=== PATIENT | female | born 1990 | race Caucasian/White ===

== ENCOUNTER 2017-03-30 10:27 | Inpatient (IN) | payer OTHER ==
[~2017-03-30] VITALS: Ht 162.6 cm; Wt 75.0 kg
[~2017-03-30 10:27] MED LIST: CEPH500C PO; EPIN0.3P4 INJ; HC30CR25 TOP; PRED20TA PO
[2017-03-30 12:10] VITALS: BP 111/76; RESP 16
[2017-03-30] MEDS: HYDROmorphONE 1 MG/ML SYG IV PRN ×2 (12:55→20:24)
[2017-03-30] MEDS ORDERED: morphine 2 MG INJ IV PRN (13:00)
[2017-03-30] MEDS ORDERED: NACL 0.9% 3 ML SYG IV SCH (13:00)
[2017-03-30] MEDS: DEXTROSE 5%-0.45% NACL 1,000 ML IV SCH ×2 (13:25→20:39)
[2017-03-30 13:51] VITALS: Ht 162.6 cm; Wt 75.0 kg
[2017-03-30 14:45] LABS: ADD SCAN DIFF NO
[2017-03-30 14:47] LABS: BASOPHILS % 0.2 % (0.0-2.0); EOSINOPHILS # 0.2 10^3/ul (0.0-0.5); HEMATOCRIT 34.6 % (37.0-47.0); HEMOGLOBIN 12.7 g/dl (12.0-16.0); LYMPHOCYTES # 3.7 10^3/ul (0.8-2.9); LYMPHOCYTES % 40.4 % (15.0-51.0); MEAN CORPUSCULAR HGB CONC 36.7 g/dl (32.0-37.0); MEAN CORPUSCULAR VOLUME 87.2 fl (82.0-101.0); MEAN PLATELET VOLUME 11.3 fl (7.4-10.4); MONOCYTE # 0.5 10^3/ul (0.3-0.9); MONOCYTES % 5.1 % (0.0-11.0); NEUTROPHIL # 4.7 10^3/ul (1.6-7.5); NEUTROPHILS % 51.9 % (39.0-77.0); PLATELET COUNT 202 10^3/UL (140-415); RED BLOOD COUNT 3.97 10^6/ul (4.20-5.40); RED CELL DISTRIBUTION WIDTH 12.2 % (11.5-14.5); WHITE BLOOD COUNT 9.1 10^3/ul (4.8-10.8)
[2017-03-30 15:07] LABS: ALBUMIN 4.4 g/dl (3.3-4.9); ALBUMIN/GLOBULIN RATIO 2.2; BILIRUBIN,INDIRECT 0.5 mg/dl (0-1.1); BILIRUBIN,TOTAL 0.5 mg/dl (0.2-1.3); CALCIUM 8.6 mg/dl (8.4-10.2); CREATININE 0.7 mg/dl (0.44-1.00); PHOSPHORUS 4.5 mg/dl (2.5-4.9); POTASSIUM 3.6 mmol/L (3.5-5.1); TOTAL PROTEIN 6.4 g/dl (6.1-8.1)
--- NOTE | 2017-03-30 17:21 | RADRPT ---
PROCEDURE: MRCP. CLINICAL INDICATION: In the right upper quadrant abdomen pain. Gallstones. TECHNIQUE: MRCP was performed. The following sequences were obtained: Three plane gradient echo localizers, coronal gradient echo images, breath hold axial T2-weighted fat saturation images, klever nal T2-weighted images, axial 3-D LAVA images, axial T2-weighted breath hold fast spin echo images, and 3-D coronal rotating MIP images of the biliary tree. COMPARISON: None available FINDINGS: The liver is normal in size. There is normal signal intensity within the liver. There is no focal hepatic lesion. The spleen is normal in size and homogeneous in signal intensity. Multiple gallstones are present in the gallbladder. There is no evidence of cholecystitis. The bile ducts are mildly dilated with the common bile duct measuring 10 mm in diameter. The is no bile duct obstructing lesion. There is no stone in the common bile duct. The pancreatic duct is grossly normal. The kidneys are grossly normal. The abdominal aorta is not dilated. IMPRESSION: 1. Gallstones in the gallbladder. No evidence of cholecystitis. 2. Dilated common bile duct measuring 10 mm in diameter. No obstructing lesion is visualized. If there is clinical concern regarding a distal common bile duct stone which may not be visible with MR CP, correlation with ERCP is advised. RPTAT: QQ .Jesus Ritchie MD, MD Date Time Electronically viewed and signed by .Jesus Ritchie MD, on 03/30/2017 17:21 .R/
--- NOTE | 2017-03-30 18:45 | CONS ---
Date/Time of Note Date/Time of Note DATE: 03/30/17 TIME: 18:33 Assessment/Plan Assessment/Plan Additional Assessment/Plan Assessment * Abdominal pain Cholecystolithiasis MRI 1. Gallstones in the gallbladder. No evidence of cholecystitis. . Dilated common bile duct measuring 10 mm in diameter. No obstructing lesion is visualized. If there is clinical concern regarding a distal common bile duct stone which may not be visible with MRCP, correlation with ERCP is advised. Plan * Pain control * Surgery consult * trend liver enzymes * continue present management Consultation Date/Type/Reason Admit Date/Time Mar 30, 2017 at 12:07 Date of Consultation: Mar 30, 2017 Type of Consultation: Gastroenterology Reason for Consultation r/o cbd dilation by ultrasound Referring Provider: MIMI RAMOS MD Hx of Present Illness 26 year old female who was transferred from [facility] because of abdominal pain.Present condition started 2 days prior to transfer as right upper quadrant pain with associated nausea and vomiting.Pain getting worse hence consulted [facility] an ultrasound revealed gallstone and interval common bile duct dilatation.ON the floor still complains on and off abdominal pain and MRCP revealed 1. Gallstones in the gallbladder. No evidence of cholecystitis. 2. Dilated common bile duct measuring 10 mm in diameter. No obstructing lesion is visualized. If there is clinical concern regarding a distal common bile duct stone which may not be visible with MRCP, correlation with ERCP is advised. Patient still complaining of abdominal pain but liver enzymes are normal Constitutional: improved, no complaints Eyes: no complaints ENT: no complaints Respiratory: no complaints Cardiovascular: no complaints Gastrointestinal: pain Genitourinary: no complaints Musculoskeletal: no complaints Skin: no complaints Neurologic: no complaints Endocrine: no complaints Lymphatic: no complaints Psychological: nl mood/affect, no complaints Immunologic: no complaints Past Medical History Medical History: no pertinent history Past Surgical History Past Surgical Hx: no surgical history Family History Significant Family History: no pertinent family hx Social History Smoking Status: Never smoker Exam/Review of Systems Vital Signs Vitals Vital Signs Date Time Temp Pulse Resp B/P Pulse Ox O2 Delivery O2 Flow Rate FiO2 03/30/17 12:10 98.4 91 16 111/76 97 Exam Constitutional: alert, oriented, well developed Psych: nl mood/affect, no complaints Head: atraumatic, normocephalic Eyes: EOMI, PERRL, nl conjunctiva, nl lids, nl sclera ENMT: nl external ears & nose, nl lips & teeth, nl nasal mucosa & septum Neck: non-tender, supple Respiratory: clear to auscultation, normal air movement Cardiovascular: nl pulses, regular rate and rhythm Gastrointestinal: nl liver, spleen, non-tender, soft Musculoskeletal: nl extremities to inspection, nl gait and stance Extremities: normal pulses Neurological: [employer] II-XII intact, nl mental status, nl speech, nl strength Skin: nl turgor, No rash or lesions Lymph: nl lymph nodes Results Result Diagram: 03/30/17 1430 03/30/17 1430 Results 24 hrs Laboratory Tests Test 03/30/17 14:30 White Blood Count 9.1 Red Blood Count 3.97 L Hemoglobin 12.7 Hematocrit 34.6 L Mean Corpuscular Volume 87.2 Mean Corpuscular Hemoglobin 32.0 Mean Corpuscular Hemoglobin Concent 36.7 Red Cell Distribution Width 12.2 Platelet Count 202 Mean Platelet Volume 11.3 H Neutrophils % 51.9 Lymphocytes % 40.4 Monocytes % 5.1 Eosinophils % 2.0 Basophils % 0.2 Nucleated Red Blood Cells % 0.0 Neutrophils # 4.7 Lymphocytes # 3.7 H Monocytes # 0.5 Eosinophils # 0.2 Basophils # 0.0 Nucleated Red Blood Cells # 0.0 Sodium Level 138 Potassium Level 3.6 Chloride Level 101 Carbon Dioxide Level 29 Anion Gap 12 Blood Urea Nitrogen 14 Creatinine 0.70 Glucose Level 87 Calcium Level 8.6 Phosphorus Level 4.5 Magnesium Level 2.0 Total Bilirubin 0.5 Direct Bilirubin 0.00 Indirect Bilirubin 0.5 Aspartate Amino Transf (AST/SGOT) 17 Alanine Aminotransferase (ALT/SGPT) 30 Alkaline Phosphatase 60 Total Protein 6.4 Albumin 4.4 Globulin 2.00 Albumin/Globulin Ratio 2.20 Medications Medications Current Medications Dextrose/Sodium Chloride (D5-1/2ns) 1,000 ml @ 125 mls/hr Q8H IV Last administered on 03/30/17t 13:25; Admin Dose 125 MLS/HR; Start 03/30/17 at 12:39 Ondansetron HCl (Zofran Inj) 4 mg Q6H PRN IV NAUSEA AND/OR VOMITING; Start at 13:00 Morphine Sulfate (morphine) 4 mg Q4H PRN IV pain; Start 03/30/17 at 13:00 Hydromorphone HCl (Dilaudid) 1 mg Q4H PRN IV SEVERE PAIN LEVEL 7-10 Last administered on 03/30/17t 12:55; Admin Dose 1 MG; Start 03/30/17 at 13:00 APRIL ABDUL MD Mar 30, 2017 18:44
[2017-03-30] MEDS ORDERED: INDOMETHACIN 50 MG SUPP PR SCH (19:00)
[2017-03-30 20:07] VITALS: BP 107/72; RESP 20
--- NOTE | 2017-03-30 21:56 | HP ---
Date/Time of Note Date/Time of Note DATE: 03/30/17 TIME: 21:56 Assessment/Plan VTE Prophylaxis VTE Prophylaxis Intervention: SCD's Lines/Catheters IV Catheter Type (from Nrsg): Peripheral IV Assessment/Plan Assessment/Plan IMPRESSION 1. Cholelithiasis with likely choledocholithiasis 2. Abd pain 2/2 above 3. Erythematous Macular rash: likely seasonal allergic reaction PLAN f/u MRCP pain mgmt seen by GI, appreciate awaiting surgical Eval PRN Benadryl and steroid for skin rash HPI/ROS Admit Date/Time Admit Date/Time Mar 30, 2017 at 12:07 Hx of Present Illness This is a 26 yo female with no significant medical hx who initially went to outside hospital c/o abd pain. She was diagnosed with cholelithiasis with imaging also showing dilated CBD. She was transferred here because of insurance reason. Her pain is mainly located in epigastric area with radiation to her back. She also has some pain in RUQ area. She denied N/V, fever/chills, diarrhea or constipation. . ROS Eyes: no complaints ENT: no complaints Respiratory: no complaints Cardiovascular: no complaints Gastrointestinal: pain Genitourinary: no complaints Musculoskeletal: no complaints Skin: no complaints Neurologic: no complaints Lymphatic: no complaints Psychological: nl mood/affect, no complaints Immunologic: no complaints PMH/Family/Social Past Medical History Medical History: no pertinent history Past Surgical History Past Surgical Hx: no surgical history Social History Smoking Status: Never smoker Exam/Review of Systems Vital Signs Vitals Vital Signs Date Time Temp Pulse Resp B/P Pulse Ox O2 Delivery O2 Flow Rate FiO2 03/30/17 20:07 98.0 78 20 107/72 94 Exam Constitutional: alert, oriented, well developed Head: atraumatic, normocephalic Eyes: EOMI, PERRL Respiratory: clear to auscultation, normal air movement Cardiovascular: nl pulses, regular rate and rhythm Gastrointestinal: soft, tender Extremities: normal pulses Labs Result Diagram: 03/30/17 1430 03/30/17 1430 Medications Medications Current Medications Dextrose/Sodium Chloride (D5-1/2ns) 1,000 ml @ 125 mls/hr Q8H IV Last administered on 03/30/17t 13:25; Admin Dose 125 MLS/HR; Start 03/30/17 at 12:39 Ondansetron HCl (Zofran Inj) 4 mg Q6H PRN IV NAUSEA AND/OR VOMITING; Start at 13:00 Morphine Sulfate (morphine) 4 mg Q4H PRN IV pain; Start 03/30/17 at 13:00 Hydromorphone HCl (Dilaudid) 1 mg Q4H PRN IV SEVERE PAIN LEVEL 7-10 Last administered on 03/30/17t 20:24; Admin Dose 1 MG; Start 03/30/17 at 13:00 MIMI RAMOS MD Mar 30, 2017 21:56
[2017-03-30] MEDS: ONDANSETRON 4 MG INJ IV PRN (22:09)
[2017-03-31] VITALS (23 sets, daily range): BP systolic 97–138; BP diastolic 56–96; PULSE 78–122; RESP 14–22
[2017-03-31 06:38] LABS: ADD SCAN DIFF NO
[2017-03-31 06:49] LABS: BASOPHILS % 0.2 % (0.0-2.0); EOSINOPHILS # 0.3 10^3/ul (0.0-0.5); EOSINOPHILS % 2.8 % (0.0-7.0); HEMATOCRIT 38.5 % (37.0-47.0); HEMOGLOBIN 13.6 g/dl (12.0-16.0); LYMPHOCYTES # 3.4 10^3/ul (0.8-2.9); LYMPHOCYTES % 36.3 % (15.0-51.0); MEAN CORPUSCULAR HEMOGLOBIN 31.1 pg (29.0-33.0); MEAN CORPUSCULAR HGB CONC 35.3 g/dl (32.0-37.0); MEAN CORPUSCULAR VOLUME 88.1 fl (82.0-101.0); MONOCYTE # 0.5 10^3/ul (0.3-0.9); MONOCYTES % 5.3 % (0.0-11.0); NEUTROPHIL # 5.1 10^3/ul (1.6-7.5); PLATELET COUNT 228 10^3/UL (140-415); RED BLOOD COUNT 4.37 10^6/ul (4.20-5.40); RED CELL DISTRIBUTION WIDTH 12.4 % (11.5-14.5); WHITE BLOOD COUNT 9.3 10^3/ul (4.8-10.8)
[2017-03-31] MEDS ORDERED: ROCURONIUM 50 MG INJ ONE (07:00)
[2017-03-31] MEDS ORDERED: PROPOFOL 200 MG INJ ONE (07:00)
[2017-03-31] MEDS: DEXTROSE 5%-0.45% NACL 1,000 ML IV SCH ×2 (07:11→12:39)
[2017-03-31 07:33] LABS: CALCIUM 8.9 mg/dl (8.4-10.2); CREATININE 0.64 mg/dl (0.44-1.00); MAGNESIUM 2.1 mg/dl (1.7-2.5); PHOSPHORUS 4.2 mg/dl (2.5-4.9); POTASSIUM 3.8 mmol/L (3.5-5.1)
[2017-03-31 08:54] LABS: ALANINE AMINOTRANSFERASE 31 IU/L (13-69); ALKALINE PHOSPHATASE 66 IU/L (42-121); ASPARTATE AMINO TRANSFERASE 22 IU/L (15-46)
[2017-03-31] MEDS: HYDROmorphONE 1 MG/ML SYG IV PRN ×3 (10:05→20:10)
[2017-03-31] MEDS: KETOROLAC 30 MG INJ IV PRN ×3 (11:54→21:44)
[2017-03-31] MEDS ORDERED: LORAZEPAM 2 MG INJ IV PRN (12:00)
--- NOTE | 2017-03-31 12:43 | HPN ---
Date/Time of Note Date/Time of Note DATE: 03/31/17 TIME: 12:43 Interval H&P Admission Note Pt. seen H&P reviewed: No system changes Pt. seen H&P reviewed. No system changes (I attest that I have seen and examined the patient and reviewed the operation in detail, as well as its risks , benefits and alternatives of the operation). I attest that I have seen and examined the patient and reviewed in detail the operation, and its associated risks, benefits and alternative. I have answered all the patient's questions to the best of my ability and the patient wishes to proceed. Please refer to rest of electronic medical record for additional updates. MALIK HERNANDEZ M.D. Mar 31, 2017 12:43
--- NOTE | 2017-03-31 13:13 | CONS ---
[facility] INITIAL INPATIENT CONSULTATION NOTE DATE OF CONSULTATION: 03/31/2017 PLACE OF SERVICE: [facility], second floor [facility] ASSESSMENT AND PLAN: A very pleasant 26-year-old young lady with comorbidity of BMI 28.4, presenting with possible early acute cholecystitis in the setting of biliary colic. She does not have any obvious evidence of choledocholithiasis , and gastroenterology has been involved and the team feels that the patient does not need any further testing. I do believe that the patient can benefit significantly from the removal of her gallbladder, and for this reason, I consented her in the presence of her mother for a laparoscopic, possible open cholecystectomy. We reviewed the operation in detail including the risks, benefits, and alternatives, and I answered all the patient's and family's questions to the best of my ability. After careful consideration of all their options, I believe that the patient and family appeared to understand and agreed with the plan. With above assessment, I recommend the following: To the operating room for above. Thank you again for allowing us to participate in the care of this very pleasant lady and her wonderful family. If there are any questions, please feel free to contact me at [phone]. UPDATED CLINICAL SUMMARY: A very pleasant 26-year-old young lady with comorbidity of BMI 28.4, presenting with signs and symptoms consistent with possible early acute cholecystitis and biliary colic. COMORBIDITIES: 1. BMI 28.4. 2. Cholelithiasis. 3. A 10 mm in diameter common bile duct without obvious stone disease. DATE OF ADMISSION: 03/30/2017 HISTORY OF PRESENT ILLNESS: The patient is a very pleasant 26-year-old young lady with above-mentioned comorbidities whom we were kindly asked to consult regarding management of her possible early acute cholecystitis. The patient was transferred from an outside hospital due to insurance capitation after she presented there with abdominal pain of approximately 3 or 4 days duration in the right upper quadrant without significant alleviation. She does not report any significant relationship of pain to food, although she has been avoiding spicy foods. No diarrhea or constipation, no blood in the stool or urine. No significant nausea or vomiting. Her workup included laboratory values that were normal and an MRCP done on 03/30/2017 showed no obvious stone disease within the common bile duct and significant stones within the gallbladder. No other major complaints during my visit. ALLERGIES: NO KNOWN DRUG ALLERGIES. MEDICATIONS: None. SOCIAL HISTORY: The patient works with [employer]. She does not report any major smoking, drinking, or intravenous drug use. FAMILY HISTORY: There is no mention of major medical, surgical, or oncologic problems in the family. REVIEW OF SYSTEMS: Other than the above-mentioned, there are no other pertinent positives or pertinent negatives in a complete 14-point review of systems. PHYSICAL EXAMINATION: GENERAL: The patient appears to be a very pleasant young lady of descent, appearing stated age, lying in bed comfortably and in no acute distress. BMI is 28.4. VITAL SIGNS: Temperature 98.7, blood pressure 97/56, pulse 89, respiratory rate 16, pulse oximetry 94% on room air. HEENT: Normocephalic and atraumatic. Extraocular muscles and hearing are grossly intact bilaterally and symmetrically. Sclerae are nonicteric. Oral cavity is clear; oral mucosa appeared to be pink and moist. Dentition: fair. NECK: Supple. There is no lymphadenopathy or JVD. There is no submental, submandibular or supraclavicular lymphadenopathy. CHEST: Rises symmetrically with each breath; patient is breathing comfortably. There are no audible wheezes, rales or rhonchi on the gross exam. HEART: Pulse is regular and palpable on the left wrist. Capillary refill was normal. Carotid pulses are palpable bilaterally and symmetrically in the neck. EXTREMITIES: Lower extremities contain no pitting edema around the ankles bilaterally and symmetrically. ABDOMEN: Abdomen is soft, nontender and nondistended. There are no peritoneal signs or guarding. No evidence of ascites, organomegaly, caput medusae, engorged subcutaneous veins, or other abnormalities. SKIN: Appears to be pink and feels warm to touch. NEUROLOGIC: Awake, alert, and follows commands appropriately. LABORATORY DATA: White blood cell count 9.3, hemoglobin 13.6, platelets 228. Electrolytes are normal. CO2 of 28, creatinine 0.64, total bilirubin 0.5, AST 17, ALT 30, alkaline phosphatase 60, albumin 4.4. IMAGING: MRCP done on 03/30/2017 with above-mentioned results. Note that I personally reviewed all the available and pertinent images and I agree in general with their overall reported findings. Dictated By: MALIK TOLEDO/RUDOLPH Conf#: [id number] DID#: [id number]
[2017-03-31] MEDS ORDERED: BUPIVACAINE 0.25%/EPI (SDV) 30 ML INJ ONE (13:20)
[2017-03-31] MEDS ORDERED: FENTAnyl 50 MCG/ML VIAL ONE (14:00)
[2017-03-31] MEDS ORDERED: MIDAZOLAM 1 MG/ML 2 ML INJ ONE (14:00)
[2017-03-31] MEDS ORDERED: LIDOCAINE 1% (MDV) 20 ML INJ ONE (14:03)
[2017-03-31] MEDS ORDERED: ROPIVACAINE 0.2% 20 ML VIAL ONE (14:11)
[2017-03-31] MEDS ORDERED: CEFAZOLIN 1 GM INJ ONE (14:33)
[2017-03-31] MEDS ORDERED: FAMOTIDINE 20 MG INJ ONE (14:43)
[2017-03-31] MEDS ORDERED: ONDANSETRON 4 MG INJ ONE (14:43)
[2017-03-31] MEDS ORDERED: DEXAMETHASONE 4 MG/ML 1 ML INJ ONE (14:43)
[2017-03-31] MEDS ORDERED: ACETAMINOPHEN 1000MG/100ML IV 100 ML ONE (14:45)
[2017-03-31] MEDS ORDERED: SUGAMMADEX SODIUM 200 MG/2 ML VIAL IV ONE (15:06)
--- NOTE | 2017-03-31 15:12 | PN ---
Date/Time of Note Date/Time of Note DATE: 03/31/17 TIME: 15:10 Assessment/Plan VTE Prophylaxis VTE Prophylaxis Intervention: SCD's Lines/Catheters IV Catheter Type (from Nrsg): Peripheral IV Assessment/Plan Assessment/Plan IMPRESSION 1. Cholelithiasis with dilated CBD 2. Abd pain 2/2 above 3. Erythematous Macular rash: likely seasonal allergic reaction PLAN f/u MRCP pain mgmt seen by GI, appreciate taken to OR for Lap choley PRN Benadryl and steroid for skin rash Subjective 24 Hr Interval Summary Free Text/Dictation pt is in OR, but per nursing was c/o continued abd pain despite dilaudid. toradol was added Exam/Review of Systems Vital Signs Vitals Vital Signs Date Time Temp Pulse Resp B/P Pulse Ox O2 Delivery O2 Flow Rate FiO2 03/31/17 10:00 78 100/65 03/31/17 08:10 98.7 16 94 Intake and Output 03/30/17 03/30/17 03/31/17 15:00 23:00 07:00 Intake Total 500 ml 0 ml Balance 500 ml 0 ml Exam not seen since in OR Results Result Diagram: 03/31/17 0432 03/31/17 0432 Results 24 hrs Laboratory Tests Test 03/31/17 04:32 White Blood Count 9.3 Red Blood Count 4.37 Hemoglobin 13.6 Hematocrit 38.5 Mean Corpuscular Volume 88.1 Mean Corpuscular Hemoglobin 31.1 Mean Corpuscular Hemoglobin Concent 35.3 Red Cell Distribution Width 12.4 Platelet Count 228 Mean Platelet Volume 12.0 H Neutrophils % 55.0 Lymphocytes % 36.3 Monocytes % 5.3 Eosinophils % 2.8 Basophils % 0.2 Nucleated Red Blood Cells % 0.0 Neutrophils # 5.1 Lymphocytes # 3.4 H Monocytes # 0.5 Eosinophils # 0.3 Basophils # 0.0 Nucleated Red Blood Cells # 0.0 Sodium Level 136 Potassium Level 3.8 Chloride Level 102 Carbon Dioxide Level 28 Anion Gap 10 Blood Urea Nitrogen 9 Creatinine 0.64 Glucose Level 72 Calcium Level 8.9 Phosphorus Level 4.2 Magnesium Level 2.1 Aspartate Amino Transf (AST/SGOT) 22 Alanine Aminotransferase (ALT/SGPT) 31 Alkaline Phosphatase 66 Medications Medications Current Medications Dextrose/Sodium Chloride (D5-1/2ns) 1,000 ml @ 125 mls/hr Q8H IV Last administered on 03/31/17 07:11; Admin Dose 125 MLS/HR; Start 03/30/17 at 12:39 Ondansetron HCl (Zofran Inj) 4 mg Q6H PRN IV NAUSEA AND/OR VOMITING Last administered on 03/30/17 22:09; Admin Dose 4 MG; Start 03/30/17 at 13:00 Morphine Sulfate (morphine) 4 mg Q4H PRN IV pain; Start 03/30/17 at 13:00 Hydromorphone HCl (Dilaudid) 1 mg Q4H PRN IV SEVERE PAIN LEVEL 7-10 Last administered on 03/31/17 10:05; Admin Dose 1 MG; Start 03/30/17 at 13:00 Ketorolac Tromethamine (Toradol) 30 mg Q6H PRN IV PAIN Last administered on 11:54; Admin Dose 30 MG; Start 03/31/17 at 12:00; Stop 04/03/17 at 11:59 Lorazepam (Ativan) 1 mg Q4H PRN IV anixety Last administered on 03/31/17 11:58 ; Admin Dose 1 MG; Start 03/31/17 at 12:00 MIMI RAMOS MD Mar 31, 2017 15:12
--- NOTE | 2017-03-31 15:23 | OPR ---
Date/Time of Note Date/Time of Note DATE: 03/31/17 TIME: 15:23 Operative Report Operative\Procedure Findings [facility] INPATIENT OPERATIVE NOTE PLACE OF SERVICE: [facility] DATE OF SURGERY: 03/31/2017 PREOPERATIVE DIAGNOSIS: 1. Possible early acute cholecystitis 2. BMI 28.4 3. Cholelithiasis 4. 10 mm common bile duct without choledocholithiasis POSTOPERATIVE DIAGNOSIS: 1. Acute cholecystitis 2. BMI 28.4 3. Cholelithiasis 4. 10 mm common bile duct without choledocholithiasis OPERATION: 1. Laparoscopic cholecystectomy SURGEON: Malik Hernandez M.D. [employer] INSPECTOR: None ANESTHESIA: General endotracheal tube anesthesia ANESTHESIOLOGIST: Evens Bledsoe M.D. BRIEF SUMMARY: An otherwise uncomplicated laparoscopic cholecystectomy was performed with findings of acute cholecystitis. UPDATED CLINICAL SUMMARY: A very pleasant 26-year-old young lady with comorbidity of BMI 28.4, presenting with signs and symptoms consistent with possible early acute cholecystitis and biliary colic. COMORBIDITIES: 1. BMI 28.4. 2. Cholelithiasis. 3. A 10 mm in diameter common bile duct without obvious stone disease. BRIEF HISTORY: The patient is a very pleasant 26-year-old young lady with comorbidity of BMI 28.4, presenting with possible early acute cholecystitis in the setting of biliary colic. She does not have any obvious evidence of choledocholithiasis, and gastroenterology has been involved and the team feels that the patient does not need any further testing. I do believe that the patient can benefit significantly from the removal of her gallbladder, and for this reason, I consented her in the presence of her mother for a laparoscopic, possible open cholecystectomy. We reviewed the operation in detail including the risks, benefits, and alternatives, and I answered all the patient's and family's questions to the best of my ability. After careful consideration of all their options, I believe that the patient and family appeared to understand and agreed with the plan. For a detailed report of my consultation with patient and family, please refer to my separate consultation note. STATEMENT OF THE INFORMED CONSENT: The patient and family appeared to understand the risks of the operation to include, but not be limited to risk of postoperative pain and scar tissue, possible infection or bleeding requiring other interventions such as opening the wound, placement of drainage catheters, or other operative interventions; possible injury to surrounding to structures including bowel, bladder, bile duct, or blood vessels, or solid organs such as liver, kidney, or pancreas requiring other interventions or procedures; possible leakage of bile from surgical clip sites, suture lines, or worse, from common bile duct injury, causing significant increase in morbidity and mortality and requiring multiple interventions including but not limited to, placement of drainage catheters, imaging studies, as well as operative interventions; possible other source of sepsis such as urinary tract infections or pneumonias, or other sources of potentially life threatening problems such as deep venous thrombus formation causing pulmonary embolism, myocardial arrhythmias and infarctions, and even . After careful consideration of all their options, the patient and family appeared to understand and wished to proceed with surgery. DESCRIPTION OF PROCEDURE: After obtaining informed consent, the patient was brought into the operating room and was placed in a normal supine position, where successful general endotracheal tube anesthesia was performed. The patient 's abdominal skin was prepped and draped, from the nipple line down to the level of the groins, in the usual sterile fashion. Intravenous access was already in place, and appropriately chosen and dosed prophylactic intravenous antimicrobials were administered. We then called a surgical time-out where patient's identification, date of , nature of the operation, allergies, presence of intravenous antimicrobials, presence of needed equipment, and any other concerns were reviewed and agreed upon by all members of the operating room team. We then started the operation by placing a 5-mm skin incision in the right- upper quadrant, subcostal midclavicular line, and introduced a 5-mm [employer] trocar into the peritoneal space, visualizing all the layers of the abdominal wall as we entered. Note that there was no indication of any injury to underlying structures once we entered the peritoneum. We insufflated the abdominal cavity to a maximum pressure of 15 mmHg, again, confirmed lack of any injury to underlying structures prior to visualizing the rest of the abdominal cavity. We found the fundus of the gallbladder to be visible. Gallbladder appeared to be significantly distended and swollen. There was no evidence of malignancy. No evidence of calcifications or significant issues with adhesions, or other abnormalities. The liver appeared to be healthy. With this information, we went a head and placed the other trocars under direct visualization, after injecting their sites with 0.25% Marcaine with epinephrine , placing a 5-mm trocar in the umbilical midline area, a 5-mm trocar in the right anterior axillary line, and a 12-mm trocar in the midline subxiphoid region. With our instruments in place, we had excellent visualization and access to the right-upper quadrant. We then drained the gallbladder using a laparoscopic needle (bilious fluid drained) and then we grasped the fundus of the gallbladder and pointed up towards the right-upper quadrant. There was mild omental adhesions onto the infundibulum which we took down with judicious use of cautery, as well as meticulous blunt dissection. We were then able to grasp the infundibulum and pull it out in order to expose the critical triangle of Calot. We then placed our usual serosal cuts along the long axis of the gallbladder 1 cm away from its attachment to the liver bed up towards the fundus, and then joined these 2 lines under the infundibulum, taking care not to deliver any energy to underlying structures. Due to the significant amount of inflammation in the triangle of Calot low and to maximize the degree of safety of the operation, I decided to take the gallbladder top-down which we accomplished using cautery. We then performed meticulous dissection to identify and circumferentially isolate both the cystic duct and cystic artery, prior to transecting them between 2 surgical Endoclips, proximally and one distally on the cystic artery and 3 surgical endoclips proximally and one distally on the cystic duct, transecting both using cold scissors, and only after making sure that these were the only 2 structures going into the gallbladder. We then shaved the gallbladder off the gallbladder bed using cautery, and then delivered it out inside of an EndoCatch bag through the 12-mm trocar site without enlarging the fascia or contaminating the wound. The gallbladder was sent to Pathology for evaluation. Returning to the abdominal cavity, we ensured that there was adequate hemostasis and bile-stasis prior to removal of all of or equipment, including the pneumoperitoneum, and then reapproximating the 12-mm trocar site with one [id number] 0 Vicryl suture, followed by washing the wounds with copious amounts of normal saline, and then reapproximating the skin using interrupted 4- 0 Monocryl sutures. Light dressing was then applied. At the end of the operation, both the sponge count and needle count were reportedly correct x2. The patient tolerated the procedure without any reported complications. ESTIMATED BLOOD LOSS: Less than 10 mL. BLOOD OR BLOOD PRODUCT TRANSFUSIONS: None to my knowledge. SPECIMENS: 1. Gallbladder COMPLICATIONS: None. DISPOSITION: Recovery area. Disclaimer: Inadvertent spelling and grammatical errors are likely due to EHR/ dictation software use and do not reflect on the quality of delivered patient care. MALIK HERNANDEZ M.D. Mar 31, 2017 15:23
[2017-03-31] MEDS ORDERED: HYDROmorphONE (0.2 MG/ML) 10ML SYG IV PRN ×2 (15:30)
[2017-03-31] MEDS ORDERED: BISACODYL 10 MG SUPP PR PRN (15:30)
[2017-03-31] MEDS ORDERED: DIPHENHYDRAMINE 50 MG INJ IV PRN (15:30)
[2017-03-31] MEDS ORDERED: DOCUSATE SODIUM 100 MG CAP PO PRN (15:30)
[2017-03-31] MEDS ORDERED: MEPERIDINE 25 MG INJ IV PRN (15:30)
[2017-03-31] MEDS ORDERED: NA PHOSPHATE/BIPHOS 133 ML ENEMA PR PRN (15:30)
[2017-03-31] MEDS ORDERED: HYDROCODONE/APAP (5/325) TAB PO PRN ×2 (15:30)
[2017-03-31] MEDS ORDERED: HYDROmorphONE 1 MG/ML SYG IV PRN (15:30)
[2017-03-31] MEDS ORDERED: PROCHLORPERAZINE 10 MG INJ IV PRN (15:30)
[2017-03-31] MEDS: ONDANSETRON 4 MG INJ IV PRN (16:08)
[2017-03-31] MEDS: D5W-0.45 NACL + KCL 20 MEQ 1,000 ML IV SCH (16:44)
[2017-04-01] MEDS: D5W-0.45 NACL + KCL 20 MEQ 1,000 ML IV SCH ×2 (05:24→11:16)
[2017-04-01 08:00] VITALS: BP 108/68; PULSE 86; RESP 18
[2017-04-01] MEDS ORDERED: FAMOTIDINE 20 MG INJ IV SCH (09:00)
[2017-04-01] MEDS ORDERED: ENOXAPARIN 40 MG/0.4 ML SYG SC SCH (09:00)
--- NOTE | 2017-04-01 14:14 | PN ---
Date/Time of Note Date/Time of Note DATE: 04/01/17 TIME: 14:11 Assessment/Plan VTE Prophylaxis VTE Prophylaxis Intervention: ambulation Lines/Catheters IV Catheter Type (from Nrsg): Peripheral IV Assessment/Plan Assessment/Plan Assessment * Cholecystolithiasis * S/P Laparoscopic cholecystectomy Plan * Stable for out patient management Subjective 24 Hr Interval Summary Free Text/Dictation * Course reviewed with RN * Patient seen and examined * S/P laparoscopic cholecystectomy Exam/Review of Systems Vital Signs Vitals Vital Signs Date Time Temp Pulse Resp B/P Pulse Ox O2 Delivery O2 Flow Rate FiO2 04/01/17 08:00 98.8 86 18 108/68 95 Room Air Intake and Output 03/31/17 03/31/17 04/01/17 15:00 23:00 07:00 Intake Total 100 ml 1650 ml Output Total 2 ml Balance 100 ml 1648 ml Exam Constitutional: alert, oriented Psych: nl mood/affect Head: normocephalic Neck: non-tender, supple Respiratory: clear to auscultation, normal air movement Cardiovascular: nl pulses, regular rate and rhythm Gastrointestinal: non-tender, soft Musculoskeletal: nl extremities to inspection, nl gait and stance Extremities: normal pulses Neurological: nl speech, nl strength Skin: nl turgor, No rash or lesions Results Result Diagram: 03/31/1743103/31/17 043 Medications Medications Current Medications Ondansetron HCl (Zofran Inj) 4 mg Q6H PRN IV NAUSEA AND/OR VOMITING Last administered on 03/31/17 16:08; Admin Dose 4 MG; Start 03/30/17 at 13:00 Hydromorphone HCl (Dilaudid) 1 mg Q4H PRN IV SEVERE PAIN LEVEL 7-10 Last administered on 03/31/17 10:05; Admin Dose 1 MG; Start 03/30/17 at 13:00 Ketorolac Tromethamine (Toradol) 30 mg Q6H PRN IV PAIN Last administered on 21:44; Admin Dose 30 MG; Start 03/31/17 at 12:00; Stop 04/03/17 at 11:59 Lorazepam 1 mg 1 mg Q4H PRN IV anixety Last administered on 03/31/17 11:58; Admin Dose 1 MG; Start 03/31/17 at 12:00 Potassium Chloride/Dextrose/ Sod Cl (D5-1/2ns + KCl 20 Meq) 1,000 ml @ 100 mls/ hr Q10H IV Last administered on 04/01/17 05:24; Admin Dose 100 MLS/HR; Start 03/31/17 at 15:16 Acetaminophen/ Hydrocodone Bitart ([place] (5/325)) 1 tab Q4H PRN PO PAIN LEVEL 4 -7; Start 03/31/17 at 15:30 Acetaminophen/ Hydrocodone Bitart ([place] (5/325)) 2 tab Q4H PRN PO PAIN LEVEL 7 -10 Last administered on 03/31/17 23:05; Admin Dose 2 TAB; Start 03/31/17 at 15 :30 Hydromorphone HCl (Dilaudid) 0.5 mg Q2H PRN IV PAIN Last administered on 20:10; Admin Dose 0.5 MG; Start 03/31/17 at 15:30 Hydromorphone HCl (Dilaudid) 1 mg Q2H PRN IV PAIN; Start 03/31/17 at 15:30 Docusate Sodium (Colace) 100 mg BID PRN PO CONSTIPATION; Start 03/31/17 at 15: 30 Bisacodyl (Dulcolax Supp) 10 mg BID PRN LA CONSTIPATION; Start 03/31/17 at 15: 30 Sodium Biphosphate/ Sodium Phosphate (Fleet Enema) 133 ml BID PRN LA CONSTIPATION; Start 03/31/17 at 15:30 Famotidine (Pepcid Iv) 20 mg DAILY IV ; Start 04/01/17 at 09:00 Enoxaparin Sodium (Lovenox) 40 mg DAILY SC ; Start 04/01/17 at 09:00 NICHELLE BOUCHER NP Apr 01, 2017 14:14
[2017-04-01] MEDS: KETOROLAC 30 MG INJ IV PRN (15:50)
--- NOTE | 2017-04-01 16:59 | PDOCDIS ---
Discharge Instructions CONDITION Patient Condition: Stable HOME CARE INSTRUCTIONS: Diet Instructions: Regular ACTIVITY: Activity Restrictions: Slowly Increase Activity Avoid heavy lifting Avoid Heavy Housework FOLLOW UP/APPOINTMENTS Appointments follow-up with Dr. avalos in 1 to 2 weeks OTHER ORDERS: Other Orders: call 911 and go to the nearest ER if you develop severe abdominal pain, fever/ chills, bleeding, shortness of breath MIMI RAMOS MD Apr 01, 2017 16:59
[2017-04-01] MEDS ORDERED: HYDR-3498 PO (17:01)
[2017-04-01] MEDS ORDERED: DOCU-144 PO (17:01)
[2017-04-01 20:02] VITALS: BP 110/69; RESP 18
--- NOTE | 2017-04-01 23:33 | PN ---
Date/Time of Note Date/Time of Note DATE: 04/01/17 TIME: 23:31 Assessment/Plan Lines/Catheters IV Catheter Type (from Nrs): Peripheral IV Assessment/Plan Assessment/Plan [facility] Progress Note Date of Service: 04/01/17 Today's Impression & Plan: Overall doing well post op without major issues. No major wound problems. No indication for acute surgical intervention. With above assessment, I've recommended the following for today: 1. D/c plans when ok by other MD's and other providers 2. F/u with me in 2-3 weeks 3. D/c instructions: Please call [phone] if any of fever, nausea, vomiting, discharge from wound , wound redness, increase or sudden pain, blood in stool or vomit, or any other unusual signs or symptoms. Also, please call the same number in a few days to schedule an appointment for your follow up visit. Patient may remove dressings tomorrow. Showers OK starting tomorrow. No swimming , hot tub or bath for 2 weeks. No lifting more than 25 lbs for 8 weeks. Thank you again for your great care of this very pleasant patient and wonderful family. If there are any questions, please feel free to call me at [phone]. TOTAL VISIT TIME: 20 minutes of which more than half was spent in [id number] discussion with the patient, possibly including family, as well as coordination of care between multiple physicians and providers. Disclaimer: Inadvertent spelling or grammatical errors are likely due to EHR/ dictation software use and do not reflect on the overall quality of patient care. Updated Clinical Summary: A very pleasant 26-year-old young lady with comorbidity of BMI 28.4, presenting with signs and symptoms consistent with possible early acute cholecystitis and biliary colic. S/p an otherwise uncomplicated laparoscopic cholecystectomy with findings of acute cholecystitis. COMORBIDITIES: 1. Acute cholecystitis 2. BMI 28.4 3. Cholelithiasis 4. 10 mm common bile duct without choledocholithiasis Subjective: No major events or complaints; no major abd pain and incisional pain under control with medications; no n/v/d; no sob or cp; + flatus; - BM; minimal activity Objective: Vitals: See below Exam: GENERAL: On exam, the patient was laying in bed and appeared to be comfortable and in no acute distress. ABDOMEN: Soft, nontender and nondistended. Incision dressings are clean, dry and intact without any evidence of obvious underlying erythema, edema, discharge , or hernia. There are no peritoneal signs or guarding. SKIN: Skin appears to be pink and feels warm to touch. NEUROLOGIC: Patient is awake, alert, and follows commands appropriately. Exam/Review of Systems Vital Signs Vitals Vital Signs Date Time Temp Pulse Resp B/P Pulse Ox O2 Delivery O2 Flow Rate FiO2 04/01/17 20:02 98.1 88 18 110/69 96 04/01/17 08:00 Room Air Intake and Output 03/31/17 03/31/17 04/01/17 15:00 23:00 07:00 Intake Total 100 ml 1650 ml Output Total 2 ml Balance 100 ml 1648 ml Results Result Diagram: 03/31/17 0432 03/31/17 0432 MALIK HERNANDEZ M.D. Apr 01, 2017 23:33
== END 2017-04-01 21:42 | disposition home or self-care (01) | DRG 419 ==
LOC: PP2 12:07
PROVIDERS: ADMIT Hospitalist; ATTEND Hospitalist
PROC: 0FT44ZZ Resection of Gallbladder, Percutaneous Endoscopic Approach (ICD-10-PCS; principal; 2017-03-31 13:30)
DX: K80.12 Calculus of gallbladder with acute and chronic cholecystitis without obstruction (principal); R21 Rash and other nonspecific skin eruption
CPT/HCPCS: 74181; 80048; 80053; 83735; 84075; 84100; 84450; 84460; 85025; 87081; 88304; J0131; J0690; J0780; J1100; J1170; J1650; J1885; J2060; J2175; J2250; J2405; J2795; J3010; J3480; J7042

== ENCOUNTER 2017-04-15 10:48 | Outpatient (CLI) | payer OTHER ==
[~2017-04-15] VITALS: Ht 162.6 cm; Wt 73.2 kg
[~2017-04-15 10:48] MED LIST changes: -CEPH500C PO; +DOCU-144 PO; +HYDR-3498 PO; -PRED20TA PO
[2017-04-15 10:52] VITALS: BP 105/73; PULSE 85; RESP 16; Ht 162.6 cm; Wt 73.2 kg
--- NOTE | 2017-04-15 13:01 | PN ---
Date/Time of Note Date/Time of Note DATE: 04/15/17 TIME: 12:55 Assessment/Plan Assessment/Plan Assessment/Plan [facility] Progress Note Date of Service: 04/15/17 Today's Impression & Plan: Overall doing well post op without major issues. No major wound problems. No indication for acute surgical intervention. With above assessment, I've recommended the following for today: 1. F/u with PCP 2. F/u with us prn Patient may remove dressings tomorrow. Showers OK starting tomorrow. No swimming , hot tub or bath for 2 weeks. No lifting more than 25 lbs for 8 weeks. Thank you again for your great care of this very pleasant patient and wonderful family. If there are any questions, please feel free to call me at [phone]. TOTAL VISIT TIME: 20 minutes of which more than half was spent in [id number] discussion with the patient, possibly including family, as well as coordination of care between multiple physicians and providers. Disclaimer: Inadvertent spelling or grammatical errors are likely due to EHR/ dictation software use and do not reflect on the overall quality of patient care. Updated Clinical Summary: A very pleasant 26-year-old young lady with comorbidity of BMI 28.4, presenting with signs and symptoms consistent with possible early acute cholecystitis and biliary colic. S/p an otherwise uncomplicated laparoscopic cholecystectomy with findings of acute cholecystitis. D/c home 04/01/17. COMORBIDITIES: 1. Acute cholecystitis. S/p an otherwise uncomplicated laparoscopic cholecystectomy with findings of acute cholecystitis at [facility] 03/31/17. 2. BMI 28.4 3. Cholelithiasis 4. 10 mm common bile duct without choledocholithiasis Subjective: No major events or complaints; no major abd pain and incisional pain under control with medications; no n/v/d; no sob or cp; + flatus; + BM; + activity Objective: Vitals: See below Exam: GENERAL: On exam, the patient was sitting in a chair and appeared to be comfortable and in no acute distress. ABDOMEN: Soft, nontender and nondistended. Incisions are clean, dry and intact without any evidence of obvious erythema, edema, discharge, or hernia. There are no peritoneal signs or guarding. SKIN: Skin appears to be pink and feels warm to touch. NEUROLOGIC: Patient is awake, alert, and follows commands appropriately. Exam/Review of Systems Vital Signs Vitals Vital Signs Date Time Temp Pulse Resp B/P Pulse Ox O2 Delivery O2 Flow Rate FiO2 04/15/17 10:52 98.3 85 16 105/73 95 Room Air MALIK HERNANDEZ M.D. Apr 15, 2017 13:01
== END 2017-04-15 16:14 | disposition home or self-care (01) ==
LOC: HPC 10:48
PROVIDERS: ATTEND Transplant Surgery
DX: K80.00 Calculus of gallbladder with acute cholecystitis without obstruction (principal)
CPT/HCPCS: G0463